=== PATIENT | female | born 1970 | race Native Hawaiian/Other Pacific Islander ===

== ENCOUNTER → 2017-10-04 | Outpatient (CLI) | payer BC | END | disposition home or self-care (01) | LOC: MAMMO 09:00 | PROVIDERS: ATTEND Nurse Practitioner Family | DX: Z12.31 Encounter for screening mammogram for malignant neoplasm of breast (principal) ==

== ENCOUNTER → 2017-12-01 | Outpatient (CLI) | payer BC ==
--- NOTE | 2017-12-01 14:15 | MAM ---
EXAM DESCRIPTION: 3D Diagnostic, Right: Digital Mammography CLINICAL HISTORY: 47 yearsFemaleABN SCREEN . Focal asymmetry versus mass density retroareolar right breast. Microcalcifications. COMPARISON: 3-D tomosynthesis bilateral screening study on 10/04/2017. Targeted right breast ultrasound following this examination. Report from prior examination also reviewed. TECHNIQUE: Right breast LM projection full-field images, 3-D tomosynthesis digital mammographic technique. Also right synthesized LM full-field images. Magnification 2-D images anterior right breast CC and LM projections. CAD for 2-D images only. FINDINGS: The breast parenchymal density pattern is: Heterogeneously dense breast tissue, which may obscure small masses. No skin thickening or nipple retraction several nodular-type soft tissue densities in the retroareolar right breast. Numerous solitary and grouped microcalcifications. No suspicious microcalcifications. ULTRASOUND: Scanning at the 1000 clock position 2 cm from the nipple. Thin-walled and well-defined anechoic mass with parallel orientation and posterior enhancement features. Nonvascular. 1.4 x 1.4 x 0.8 cm. No distinct solid mass. No calcifications or parenchymal edema. No skin changes. Scanning at the 1200 clock position of the right breast 2 cm from the nipple. Hypoechoic mass with well-defined lobulated borders and parallel orientation. Posterior enhancement features. Nonvascular, 5.5 x 5.2 mm. Not associated with distinct solid mass, calcifications, parenchymal edema or skin changes. IMPRESSION: BI-RADS CATEGORY: 3 - PROBABLY BENIGN. Management: Short interval (6-month) follow-up diagnostic digital right breast mammography and possibly targeted right breast ultrasound. The FINDINGS and the FOLLOW-UP plan were reviewed in person with the patient after the examination. Written communication explaining the IMPRESSION and FOLLOW-UP will be mailed to the patient and referring care provider. Electronically signed by: Oren Magallon MD 12/01/2017 2:15 PM CDT
--- NOTE | 2017-12-01 14:16 | US ---
EXAM DESCRIPTION: Breast,Right: Ultrasound CLINICAL HISTORY: 47 yearsFemaleABNORMAL MAMMO. Right breast retroareolar focal asymmetry or mass and calcifications. COMPARISON: Digital diagnostic 3-D tomosynthesis mammogram right breast on this visit. Bilateral 3-D tomosynthesis screening mammogram 10/04/2017. TECHNIQUE: Transcutaneous scanning of the anterior retroareolar right breast utilizing two-dimensional and Doppler modes. Scanning performed by the subscription agent and Dr. Magallon. FINDINGS: Scanning at the 1000 clock position 2 cm from the nipple. Thin-walled and well-defined anechoic mass with parallel orientation and posterior enhancement features. Nonvascular. 1.4 x 1.4 x 0.8 cm. No distinct solid mass. No calcifications or parenchymal edema. No skin changes. Scanning at the 1200 clock position of the right breast 2 cm from the nipple. Hypoechoic mass with well-defined lobulated borders and parallel orientation. Posterior enhancement features. Nonvascular, 5.5 x 5.2 mm. Not associated with distinct solid mass, calcifications, parenchymal edema or skin changes. IMPRESSION: 1. Bi-Rads Category 3: Probably Benign Findings. 2. Please refer to 3-D tomosynthesis diagnostic right breast evaluation and report on this visit. The FINDINGS and the FOLLOW-UP plan were reviewed in person with the patient after the examination. Written communication explaining the IMPRESSION and FOLLOW-UP will be mailed to the patient and referring care provider. Electronically signed by: Oren Magallon MD 12/01/2017 2:15 PM CDT
== END ==
LOC: MAMMO 11:29
PROVIDERS: ATTEND Nurse Practitioner Family
DX: R92.8 Other abnormal and inconclusive findings on diagnostic imaging of breast (principal)
CPT/HCPCS: 76641; 77065; G0279

== ENCOUNTER → 2018-06-02 | Outpatient (CLI) | payer BC ==
--- NOTE | 2018-06-03 10:05 | MAM ---
EXAM DESCRIPTION: 3D Diagnostic, Right: Digital Mammography CLINICAL HISTORY: 47 yearsFemaleABN MAMMO follow-up calcifications right breast. COMPARISON: Diagnostic digital right breast tomosynthesis 12/01/2017. . TECHNIQUE: Right breast CC LM projection full-field images, digital mammographic tomosynthesis technique. Right breast full-field 2-D MLO image. Magnification upper middle third right breast. CAD not utilized. FINDINGS: Right breast parenchymal density pattern is: Extremely dense breast tissue, which lowers the sensitivity of mammography. No skin thickening or nipple retraction scattered and grouped microcalcifications in the anterior and middle third of the right breast near the midline. Again noted is a well-defined soft tissue mass previously identified as a cyst on ultrasound, approximately 1.5 cm in diameter at the 1000 clock location in the anterior third. Calcifications appear stable since the prior study. No new focal, stellate mass or density, focal asymmetry , and no suspicious microcalcifications right breast. IMPRESSION: BI-RADS CATEGORY: 3 - PROBABLY BENIGN. Management: Short interval (September 2018) digital diagnostic right breast mammography, with one year follow-up left breast.. The FINDINGS and the FOLLOW-UP plan were reviewed in person with the patient after the examination. Written communication explaining the IMPRESSION and FOLLOW-UP will be mailed to the patient and referring care provider. Electronically signed by: Oren Magallon MD 06/03/2018 10:04 AM CDT
== END ==
LOC: MAMMO 09:46
PROVIDERS: ATTEND Nurse Practitioner Family
DX: R92.8 Other abnormal and inconclusive findings on diagnostic imaging of breast (principal)
CPT/HCPCS: 77065; G0279